=== PATIENT | female | born 1985 | race Caucasian/White ===

== ENCOUNTER → 2016-04-27 | Outpatient (REF) | payer OTHER ==
[~2016-04-27] MED LIST: ACET50TA PO; DIBU1OI TOP; FOLI1TAB2 PO; IBUP-1114 PO; KEPP750T3 PO; LAMI200T PO; PRENTAB7 PO
== END ==
LOC: M LAB REF 08:36
PROVIDERS: ATTEND Physician Assistant
DX: J02.9 Acute pharyngitis, unspecified (principal)

== ENCOUNTER → 2016-09-27 | Outpatient (REF) | payer OTHER ==
[~2016-09-27] MED LIST changes: +DIBU10OI TOP; -DIBU1OI TOP; -FOLI1TAB2 PO; +FOLI1TAB4 PO
== END ==
LOC: M LABNEURO 11:08
PROVIDERS: ATTEND Psychiatry & Neurology Neurology
DX: R56.9 Unspecified convulsions (principal); Z51.81 Encounter for therapeutic drug level monitoring; Z79.899 Other long term (current) drug therapy